=== PATIENT | male | born 1945 | race Caucasian/White ===

== ENCOUNTER 2017-10-19 17:05 | Inpatient (IN) | payer MEDICARE, OTHER ==
[2017-10-19] VITALS: BP 135/79
[~2017-10-19] VITALS: Ht 172.7 cm; Wt 83.9 kg
--- NOTE | 2017-10-19 17:05 | NUR ---
PATIENT TO ED DT SOB AND CHEST PRESSURE, 8/10, NON RADIATING SINCE THIS 1430. PATIENT IS AAO4, APPEARS IN NO APPARENT DISTRESS. RESPIRATION EVEN AND UNALBORED. SKIN IS WARM TO TOUCH AND NON DIAPHORETIC. AFEBRILE. VSS
[2017-10-19] MEDS ORDERED: ASPIRIN 325 MG TABLET PO ONE (17:30)
[2017-10-19] MEDS ORDERED: NITROGLYCERIN 0.4 MG/TAB BOTTLE SL ONE (17:30)
[2017-10-19] MEDS ORDERED: ASPIRIN EC 81 MG TABLET.DR PO ONE (17:34)
[2017-10-19] MEDS ORDERED: NITROGLYCERIN 0.4 MG/TAB BOTTLE ONE (17:34)
[2017-10-19 17:41] LABS: BASOPHILS % (AUTO) 0.3 % (0.0-2.0); EOSINOPHILS # (AUTO) 0.1 /CMM (0.0-0.7); HEMATOCRIT 46 % (39-51); HEMOGLOBIN 15.1 g/dL (13.5-17.5); LYMPHOCYTES # (AUTO) 1.3 /CMM (0.8-4.8); LYMPHOCYTES % (AUTO) 16.2 % (20.0-44.0); MEAN CORPUSCULAR HEMOGLOBIN 29 PG (26.0-33.0); MEAN CORPUSCULAR HGB CONC 33 g/dl (31.0-36.0); MEAN CORPUSCULAR VOLUME 87 fL (80-96); MONOCYTES # (AUTO) 0.7 /CMM (0.1-1.30); MONOCYTES % (AUTO) 9.1 % (2.0-12.0); NEUTROPHILS # (AUTO) 6.1 /CMM (1.8-8.9); NEUTROPHILS % (AUTO) 73.4 % (43.0-81.0); PLATELET COUNT (AUTO) 228 /CMM (150-450); RDW COEFFICIENT OF VARIATION 13.3 (11.5-15.0); RED BLOOD CELL COUNT(AUTO) 5.24 MIL/uL (4.5-6.0); WHITE BLOOD COUNT (AUTO) 8.2 K/uL (4.3-11.0)
[2017-10-19 17:51] LABS: CALCIUM, SERUM 9.4 mg/dL (8.5-10.1); CARBON DIOXIDE 25 mmol/L (21-32); CHLORIDE 107 mmol/L (98-107); CREATININE 1.5 mg/dL (0.6-1.3); GLUCOSE 149 mg/dL (74-106); POTASSIUM 3.5 mmol/L (3.5-5.1); SODIUM SERUM 142 mmol/L (136-145); UREA NITROGEN, BLOOD 27 mg/dL (7-18)
[2017-10-19 18:00] LABS: TROPONIN I < 0.017 ng/mL (0.00-0.056)
[2017-10-19 18:29] LABS: INR 0.99 (0.87-1.13); PROTHROMBIN TIME 10.3 SECS (9.5-12.7)
--- NOTE | 2017-10-19 18:58 | NUR ---
REPORT GIVEN TO VICKIE FOR ANNE
--- NOTE | 2017-10-19 19:00 | NUR ---
PT FELT COLD. PT REC'D A WARM BLANKET.
--- NOTE | 2017-10-19 19:32 | NUR ---
PANEL PAGED 2ND TIME.
--- NOTE | 2017-10-19 19:35 | NUR ---
PT REC'D A SANDWICH AND CRANBERRY JUICE
--- NOTE | 2017-10-19 20:02 | NUR ---
REPORT GIVEN TO TA RN. PT MOVED TO TA BED #14.
--- NOTE | 2017-10-19 20:55 | NUR ---
rn note transfer the pt to tele room 115 bed 2. pt is stable. pt denies chest pain and sob. report given to ed rn.
--- NOTE | 2017-10-19 21:20 | NUR ---
BADGER DISTILLER OPERATOR - ADMITTING NOTES RECEIVED PATIENT FROM TRANSITIONAL UNIT. PATIENT IS ALERT AND ORIENTED X3-4. NO S/S OF SOB OR ANY DISCOMFORT NOTED. PATIENT DENIES ANY CHEST PAIN. BED IN LOW POSITION AND LOCKED. SIDERAILS X 2UP. TELE READING OF SR 62 WITH PAC'S ON THE MONITOR. NO SIGNIFICANT CHANGES NOTED AT THIS TIME. WILL CONTINUE TO MONITOR PATIENT.
[2017-10-19 21:45] VITALS: BP 159/95
[2017-10-19] MEDS ORDERED: OMEG1CAP55 PO (22:11)
[2017-10-19] MEDS ORDERED: NITR0.4T6 SL (22:11)
[2017-10-19] MEDS ORDERED: ALBU8.5H2 INH (22:11)
[2017-10-19] MEDS ORDERED: LISI40TA4 PO (22:11)
[2017-10-19] MEDS ORDERED: AMLO10TA2 PO (22:11)
[2017-10-19] MEDS ORDERED: DOCU-170 PO (22:11)
[2017-10-19] MEDS ORDERED: CLOP75TA2 PO (22:11)
[2017-10-19] MEDS ORDERED: [UNRECOGNIZED DRUG - CODE] TP (22:11)
[2017-10-19] MEDS ORDERED: ASPI325T2 PO (22:11)
[2017-10-19] MEDS ORDERED: TRIA80OI TP (22:11)
[2017-10-19] MEDS ORDERED: ZOLP10TA6 PO (22:11)
[2017-10-19] MEDS ORDERED: ATOR40TA PO (22:11)
[2017-10-19] MEDS ORDERED: TIOT18CA3 INH (22:11)
[2017-10-19] MEDS ORDERED: HYDR-552 PO (22:11)
[2017-10-19] MEDS ORDERED: CARV25TA PO (22:11)
[2017-10-19] MEDS ORDERED: TAMS0.4C34 PO (22:11)
[2017-10-19] MEDS ORDERED: TADA5TAB2 PO (22:11)
--- NOTE | 2017-10-19 22:15 | NUR ---
Called Dr. White regarding admitting orders. Per Dr. White, he will put the orders in.
[2017-10-19] MEDS ORDERED: NITROGLYCERIN 0.4 MG/TAB BOTTLE SL PRN (23:00)
[2017-10-19] MEDS ORDERED: ZOLPIDEM TARTRATE 10 MG TABLET PO PRN (23:00)
[2017-10-19] MEDS ORDERED: HYDROCODONE/APAP 5/325MG 1 EACH TABLET PO PRN (23:00)
[2017-10-19] MEDS ORDERED: ATORVASTATIN 40 MG TABLET PO SCH (23:00)
[2017-10-19] MEDS ORDERED: ATORVASTATIN 40 MG TABLET ONE (23:30)
[2017-10-19] MEDS ORDERED: ACETAMINOPHEN 325 MG TABLET PO PRN (23:30)
[2017-10-19] MEDS ORDERED: ONDANSETRON HCL/PF 4 MG/2 ML VIAL IVP PRN (23:30)
[2017-10-20 04:00] VITALS: BP 130/74
[2017-10-20 06:45] LABS: BASOPHILS % (AUTO) 0.3 % (0.0-2.0); EOSINOPHILS # (AUTO) 0.1 /CMM (0.0-0.7); EOSINOPHILS % (AUTO) 0.7 % (0.0-6.0); HEMATOCRIT 47 % (39-51); HEMOGLOBIN 15.8 g/dL (13.5-17.5); LYMPHOCYTES # (AUTO) 1.1 /CMM (0.8-4.8); LYMPHOCYTES % (AUTO) 11.5 % (20.0-44.0); MEAN CORPUSCULAR HEMOGLOBIN 29 PG (26.0-33.0); MEAN CORPUSCULAR HGB CONC 34 g/dl (31.0-36.0); MEAN CORPUSCULAR VOLUME 87 fL (80-96); MONOCYTES # (AUTO) 0.8 /CMM (0.1-1.30); MONOCYTES % (AUTO) 7.8 % (2.0-12.0); NEUTROPHILS # (AUTO) 7.8 /CMM (1.8-8.9); NEUTROPHILS % (AUTO) 79.7 % (43.0-81.0); PLATELET COUNT (AUTO) 198 /CMM (150-450); RDW COEFFICIENT OF VARIATION 14.2 (11.5-15.0); RED BLOOD CELL COUNT(AUTO) 5.39 MIL/uL (4.5-6.0); WHITE BLOOD COUNT (AUTO) 9.8 K/uL (4.3-11.0)
[2017-10-20 06:55] LABS: TROPONIN I < 0.017 ng/mL (0.00-0.056)
[2017-10-20 06:56] LABS: ALANINE AMINOTRANSFERASE 24 U/L (12-78); ALBUMIN 3.7 g/dL (3.4-5.0); ALKALINE PHOSPHATASE 74 U/L (46-116); ASPARTATE AMINOTRANSFERASE 14 U/L (15-37); B-TYPE NATRIURETIC PEPTIDE 213 PG/ML (0-125); BILIRUBIN,TOTAL 0.6 mg/dL (0.2-1.0); CALCIUM, SERUM 9.7 mg/dL (8.5-10.1); CARBON DIOXIDE 24 mmol/L (21-32); CHLORIDE 108 mmol/L (98-107); CREATININE 1.3 mg/dL (0.6-1.3); GLUCOSE 137 mg/dL (74-106); MAGNESIUM 1.7 mg/dL (1.8-2.4); PHOSPHORUS 3.9 mg/dL (2.5-4.9); POTASSIUM 3.3 mmol/L (3.5-5.1); SODIUM SERUM 144 mmol/L (136-145); TOTAL PROTEIN, SERUM 7.1 g/dL (6.4-8.2); UREA NITROGEN, BLOOD 21 mg/dL (7-18)
--- NOTE | 2017-10-20 06:57 | NUR ---
RN - CLOSING NOTES PATIENT IN BED ALERT AND ORIENTED. TELE READING OF SR 69 WITH OCCASIONAL PAC'S AND PVC'S. NO SIGNIFICANT CHANGES NOTED AT THIS TIME. WILL ENDORSE TO MORNING NURSE FOR CONTINUITY OF CARE.
[2017-10-20 07:00] LABS: CHOLESTEROL 130 mg/dL (<200); HDL CHOLESTEROL 46 mg/dL (40-60); LDL 71 mg/dL (0-99); THYROID STIMULATING HORMONE 0.854 uIU/mL (0.358-3.74); TRIGLYCERIDES 127 mg/dL (30-150)
[2017-10-20] MEDS ORDERED: PANTOPRAZOLE 40 MG TABLET.DR PO SCH (07:30)
[2017-10-20] MEDS: Magnesium 1GM/D5W 100ML PREMIX 100 ML IV SCH ×2 (07:41→08:41)
[2017-10-20 07:54] LABS: IRON, SERUM 76 ug/dl (50-175); TOTAL IRON BINDING CAPACITY 300 ug/dl (250-450)
[2017-10-20 09:00] VITALS: BP 122/77
[2017-10-20] MEDS: POTASSIUM CHLORIDE 20 MEQ TAB.PRT.SR PO SCH ×3 (09:00→10:00)
[2017-10-20] MEDS ORDERED: TRIAMCINOLONE ACETONIDE TP SCH (09:00)
[2017-10-20] MEDS ORDERED: ASPIRIN EC 325 MG TABLET.DR PO SCH (09:00)
[2017-10-20] MEDS ORDERED: CARVEDILOL 12.5 MG TABLET PO SCH (09:00)
[2017-10-20] MEDS ORDERED: DOCUSATE SODIUM 100 MG CAPSULE PO SCH ×2 (09:00)
[2017-10-20] MEDS ORDERED: CLOPIDOGREL BISULFATE 75 MG TABLET PO SCH (09:00)
[2017-10-20] MEDS ORDERED: AMLODIPINE BESYLATE 10 MG TABLET PO SCH (09:00)
[2017-10-20] MEDS ORDERED: Magnesium 1GM/D5W 100ML PREMIX 100 ML IV SCH (11:07)
--- NOTE | 2017-10-20 11:15 | NUR ---
DISCHARGE NOTE PT DISCHARGED TO HOME. A/OX4, VSS. NO S/S OF DISTRESS OR SOB. NO C/O PAIN AT THIS TIME. CHEST PAIN APPEARS TO HAVE RESOLVED. PT PROVIDED WITH DISCHARGE PAPERWORK AND EXIT CARE. ALL DOCUMENTS SIGNED AND COPIED. PT VERBALIZES UNDERSTANDING OF [employer]ITC[employer] EDUCATION. IV ACCESS REMOVED. BELONGINGS LIST SIGNED AND COPIED. COPIES OF ALL DOCUMENTATION PLACED IN CHART. PT WAS PICKED UP BY DAUGHTER AND LEFT IN A PRIVATE CAR.
[2017-10-20] MEDS ORDERED: POTASSIUM CHLORIDE 20 MEQ TAB.PRT.SR PO SCH (11:30)
[2017-10-20] MEDS ORDERED: TAMSULOSIN 0.4 MG CAP.SR.24H PO SCH (22:00)
== END 2017-10-20 11:11 | disposition home or self-care (01) | DRG 205 ==
LOC: ER 17:07 → TRANSITION 19:49 → TELE 21:01 → MED 10-20 08:30
PROVIDERS: ADMIT Internal Medicine; ATTEND Internal Medicine
DX: M94.0 Chondrocostal junction syndrome [Tietze] (principal); N17.0 Acute kidney failure with tubular necrosis; I25.10 Atherosclerotic heart disease of native coronary artery without angina pectoris; E11.9 Type 2 diabetes mellitus without complications; E78.5 Hyperlipidemia, unspecified; E83.42 Hypomagnesemia; E87.6 Hypokalemia; F17.210 Nicotine dependence, cigarettes, uncomplicated; I11.9 Hypertensive heart disease without heart failure; J44.9 Chronic obstructive pulmonary disease, unspecified; N40.0 Benign prostatic hyperplasia without lower urinary tract symptoms; Z85.858 Personal history of malignant neoplasm of other endocrine glands; Z98.61 Coronary angioplasty status; Z98.84 Bariatric surgery status; Z71.6 Tobacco abuse counseling
CPT/HCPCS: 36415; 71010-TC; 80048-TC; 80053-TC; 80061-TC; 83540-TC; 83735-TC; 83880; 84100-TC; 84153-TC; 84443-TC; 84484-TC; 85025-TC; 85730-TC; 87081-TC; A4606; J3475; Z7610